=== PATIENT | female | born 1995 | race Caucasian/White ===

== ENCOUNTER 2025-05-04 16:46 | Emergency (ER) | payer MEDICARE ==
[~2025-05-04] VITALS: Ht 165.1 cm; Wt 86.9 kg
[2025-05-04 19:58] LABS: BASOPHILS 0.5 % (0.1-1.2); EOSINOPHILS 0.6 % (0.7-5.8); LYMPHOCYTES 4.2 % (19.3-51.7); MCH 29.3 PG (25.6-32.2); MCHC 33.8 g/dL (32.2-35.5); MCV 86.8 fL (79.4-94.8); MONOCYTES 5.9 % (4.7-12.5); NEUTROPHILS 88.4 % (34.0-71.1); RBC 5.32 M/uL (3.93-5.22)
[2025-05-04] MEDS ORDERED: SODIUM CHLORIDE 0.9% 1,000 ML IV ONE (20:00)
[2025-05-04] MEDS ORDERED: PROCHLORPERAZINE EDISYLATE 10 MG/2 ML VIAL IV ONE (20:00)
[2025-05-04] MEDS ORDERED: MORPHINE SULFATE 4 MG/ML VIAL IV ONE (20:00)
[2025-05-04 20:13] LABS: ALT (SGPT) 18.0 U/L (14-59); AST (SGOT) 8.0 U/L (15-37); GLOMERULAR FILTRATION RATE,EST 125.0 mL/min (>60); PROTEIN, TOTAL 7.6 g/dL (6.4-8.2); UREA NITROGEN 7.0 mg/dL (7-18)
[2025-05-04] MEDS ORDERED: GABAPENTIN300 MG PO (20:34)
[2025-05-04] MEDS ORDERED: LAMOTRIGINE300 MG PO (20:34)
[2025-05-04] MEDS ORDERED: ADDERALL 15 MG15 MG PO (20:34)
[2025-05-04] MEDS ORDERED: ONDANSETRON ODT8 MG PO (22:27)
[2025-05-04 22:44] VITALS: BP 106/73
[2025-05-04] MEDS ORDERED: ONDANSETRON 4 MG HOME.PACK SL ONE (22:45)
== END 2025-05-04 22:40 | disposition home or self-care (01) ==
LOC: ED 16:46
PROVIDERS: Family Medicine
DX: K52.9 Noninfective gastroenteritis and colitis, unspecified (principal); Z88.1 Allergy status to other antibiotic agents; Z79.899 Other long term (current) drug therapy
CPT/HCPCS: 36415; 74177; 80053; 83690; 84703; 85025; 96361; 96374; 96375; 99284-25; A9270; J0780; J2270; J7030; Q9967